=== PATIENT | female | born 1990 | race Caucasian/White ===

== ENCOUNTER 2016-08-24 19:07 | Emergency (ER) | payer BC ==
[2016-08-24 20:25] VITALS: BP 124/85
--- NOTE | 2016-08-24 20:36 | UC ---
Ear Complaint HPI - HPI Summary HPI Summary: right ear pain worsening today, cough, congestion, no fever - History of Current Complaint Chief Complaint: UCRespiratory Stated Complaint: EAR PAIN Time Seen by Provider: 08/24/16 20:25 Hx Obtained From: Patient Hx Last Menstrual Period: 08/24/16 ?: No Onset/Duration: Sudden Onset, Lasting Days - 2, Still Present, Worse Since - today Severity Initially: Mild Severity Currently: Moderate Pain Intensity: 7 Pain Scale Used: 0-10 Numeric Aggravating Factors: Nothing Alleviating Factors: Nothing - has been taking alkaseltzer q4 hours today without much relief Associated Signs/Symptoms: Positive: URI Symptoms - Allergies/Home Medications Allergies/Adverse Reactions: Allergies Allergy/AdvReac Type Severity Reaction Status Date / Time No Known Allergies Allergy Verified 08/24/16 20:17 Home Medications: Home Medications Cough Suppressant 30 mg PO Q6H PRN 08/24/16 [History] Phenylephrine-Chlorpheniramine [Yris-[place] Plus Cold &] 1 cap PO Q4H PRN 08/24 [History Confirmed 08/24/16] PMH/Surg Hx/FS Hx/Imm Hx Previously Healthy: No Respiratory History Of: Reports: Asthma - Surgical History Surgical History: Yes Surgery Procedure, Year, and Place: T&A. wisdom teeth - Family History Known Family History: Negative: Hypertension, Renal Disease, Respiratory Disease - Social History Occupation: Employed Part-time, Student Lives: With Family Alcohol Use: Occasionally Substance Use Type: None Smoking Status (MU): Never Smoked Tobacco - Immunization History Most Recent Influenza Vaccination: last week Review of Systems Constitutional: Negative Skin: Negative Eyes: Negative ENT: Sore Throat, Ear Ache, Nasal Discharge Respiratory: Cough Cardiovascular: Negative Gastrointestinal: Negative Genitourinary: Negative Motor: Negative Neurovascular: Negative Musculoskeletal: Negative Neurological: Negative Psychological: Negative All Other Systems Reviewed And Are Negative: Yes Physical Exam Triage Information Reviewed: Yes Appearance: Well-Nourished, Ill-Appearing - mild, Pain Distress - mild Vital Signs: Initial Vital Signs Temp 98.7 F 08/24/16 20:20 Pulse 86 08/24/16 20:20 Resp 18 08/24/16 20:20 BP 124/85 08/24/16 20:20 Pulse Ox 100 08/24/16 20:20 Vital Signs Reviewed: Yes Eye Exam: Normal Eyes: Positive: Conjunctiva Clear ENT Exam: Normal ENT: Positive: Normal ENT inspection, Hearing grossly normal, Pharynx normal, Nasal congestion, Nasal drainage, TMs normal. Negative: Tonsillar swelling, Tonsillar exudate, Trismus, Muffled/hoarse voice Dental Exam: Normal Neck exam: Normal Neck: Positive: Supple, Nontender, No Lymphadenopathy Respiratory Exam: Normal Respiratory: Positive: Chest non-tender, Lungs clear, Normal breath sounds, No respiratory distress, No accessory muscle use Cardiovascular Exam: Normal Cardiovascular: Positive: RRR, No Murmur, Pulses Normal, Brisk Capillary Refill Musculoskeletal Exam: Normal Musculoskeletal: Positive: Strength Intact, ROM Intact, No Edema Neurological Exam: Normal Neurological: Positive: Alert, Muscle Tone Normal Psychological Exam: Normal Psychological: Positive: Normal Response To Family Skin Exam: Normal Diagnostics - Laboratory Diagnostic Studies Completed/Ordered: Influenza A (+) Ear Complaint Course/Dx - Course Course Of Treatment: Use Albuterol , increase fluids, rest, tylenol, ibuprofen, follow with pcp - Differential Dx/Diagnosis Differential Diagnosis/HQI/PQRI: Cellulitis, Cerumen Impaction, Foreign Body, Otitis Media, URI Provider Diagnoses: Influenza A, Discharge - Discharge Plan Condition: Stable Disposition: HOME Patient Education Materials: How to Use a Metered-Dose Inhaler (ED), Influenza (ED), Wheezing (ED) Referrals: Elicia Briscoe MD [Primary Care Provider] - If Needed
== END 2016-08-24 21:05 | disposition home or self-care (01) ==
LOC: UCCORT 19:07
DX: J09.X2 Influenza due to identified novel influenza A virus with other respiratory manifestations (principal); B97.89 Other viral agents as the cause of diseases classified elsewhere; R09.81 Nasal congestion; J45.909 Unspecified asthma, uncomplicated
CPT/HCPCS: 87502; 99211; G0463

== ENCOUNTER 2017-07-14 09:53 | Emergency (ER) | payer BC ==
[2017-07-14 10:42] VITALS: BP 107/74
--- NOTE | 2017-07-14 11:48 | UC ---
Abdominal Pain Female HPI - HPI Summary HPI Summary: Started feeling nausea and abd pain yesterday after dinner, went to bed and woke at 2am with 3-4 episodes of vomiting. Denies blood in the vomitus, but did have bile in the final episode. Took zofran x 1 but continues to have nausea and intense abdominal cramping. Denies fever or diarrhea. No urinary symptoms or prior abd surgeries. - History of Current Complaint Chief Complaint: UCGI Stated Complaint: VOMITING,ABD MUSCLE SPASMS Time Seen by Provider: 07/14/17 11:26 Hx Obtained From: Patient Hx Last Menstrual Period: 08/24/16 ?: No Onset/Duration: Gradual Onset, Lasting Hours Timing: Constant Severity Initially: Mild Severity Currently: Moderate Location: Diffuse Radiates: No Character: Cramping, Dull Aggravating Factor(s): Movement, Deep Breaths Alleviating Factor(s): Nothing Associated Signs and Symptoms: Positive: Nausea, Vomiting. Negative: Fever, Cough, Urinary Symptoms, Vaginal Discharge, Diarrhea Allergies/Adverse Reactions: Allergies Allergy/AdvReac Type Severity Reaction Status Date / Time No Known Allergies Allergy Verified 07/14/17 10:43 Home Medications: Home Medications Methylphenidate ER TAB* [Concerta ER TAB*] 18 mg PO DAILY 07/14/17 [History Confirmed 07/14/17] PMH/Surg Hx/FS Hx/Imm Hx - Additional Past Medical History Additional PMH: interstitial cystitis - Surgical History Surgical History: Yes Surgery Procedure, Year, and Place: T&A. wisdom teeth - Family History Known Family History: Negative: Hypertension, Renal Disease, Respiratory Disease - Social History Occupation: Student Alcohol Use: Occasionally Substance Use Type: None Smoking Status (MU): Never Smoked Tobacco - Immunization History Most Recent Influenza Vaccination: last week Review of Systems Constitutional: Negative Skin: Negative Eyes: Negative ENT: Negative Respiratory: Negative Cardiovascular: Negative Gastrointestinal: Abdominal Pain, Vomiting, Nausea Genitourinary: Negative Motor: Negative Neurovascular: Negative Musculoskeletal: Negative Neurological: Negative Psychological: Negative Is Patient Immunocompromised?: No All Other Systems Reviewed And Are Negative: Yes Physical Exam Triage Information Reviewed: Yes Appearance: Well-Nourished, Pain Distress - mild Vital Signs: Initial Vital Signs Temp 98.3 F 07/14/17 10:39 Pulse 97 07/14/17 10:39 Resp 16 07/14/17 10:39 BP 107/74 07/14/17 10:39 Pulse Ox 100 07/14/17 10:39 Vital Signs Reviewed: Yes Eye Exam: Normal Eyes: Positive: Conjunctiva Clear ENT Exam: Normal ENT: Positive: Normal ENT inspection, Hearing grossly normal, Pharynx normal, TMs normal Dental Exam: Normal Neck exam: Normal Neck: Positive: Supple, Nontender, No Lymphadenopathy Respiratory Exam: Normal Respiratory: Positive: Chest non-tender, Lungs clear, Normal breath sounds, No respiratory distress, No accessory muscle use Cardiovascular Exam: Normal Cardiovascular: Positive: RRR - 90s on exam, No Murmur Abdominal Exam: Other - diffuse mild tenderness, slightly worse in epigastric area Abdomen Description: Positive: No Organomegaly, Soft. Negative: CVA Tenderness (R), CVA Tenderness (L), Distended, McBurney's Point Tenderness Musculoskeletal Exam: Normal Neurological Exam: Normal Neurological: Positive: Alert Psychological Exam: Normal Skin Exam: Normal Abd Pain Female Course/Dx - Differential Dx/Diagnosis Provider Diagnoses: Acute viral gastritis Discharge - Discharge Plan Condition: Stable Disposition: HOME Prescriptions: Dicyclomine CAP* [Bentyl CAP*] 10 mg PO QID #30 cap Patient Education Materials: Gastritis (ED) Referrals: Elicia Briscoe MD [Primary Care Provider] - Additional Instructions: I believe your symptoms are from a viral infection. It is likely that you may develop diarrhea in the next day or two. In addition to the antispasmodic medicine I prescribed, I recommend you take 25- 50mg diphenhydramine (benadryl) for nausea. If you develop increasing pain, if vomiting is not better within 72 hours from onset, or if you are having more than 20 stools per day, please get seen again at the emergency department.
== END 2017-07-14 11:52 | disposition home or self-care (01) ==
LOC: UCCORT 09:53
DX: A08.4 Viral intestinal infection, unspecified (principal)
CPT/HCPCS: 99212; G0463